=== PATIENT | female | born 1950 | race Caucasian/White ===

== ENCOUNTER 2020-02-26 09:34 | Outpatient (RCR) | payer MEDICARE, OTHER, SELFPAY | END 2020-03-23 23:59 | disposition home or self-care (01) | LOC: SPT 09:34 | PROVIDERS: PCP Nurse Practitioner Family; Referring Provider Nurse Practitioner Family; Visit Provider Nurse Practitioner Family | DX: M46.1 Sacroiliitis, not elsewhere classified (principal) | CPT/HCPCS: 97110; 97116; 97161 ==

== ENCOUNTER 2020-03-24 06:00 | Outpatient (RCR) | payer MEDICARE, OTHER, SELFPAY | END 2020-04-08 14:44 | disposition home or self-care (01) | LOC: SPT 06:00 | PROVIDERS: PCP Nurse Practitioner Family; Referring Provider Nurse Practitioner Family; Visit Provider Nurse Practitioner Family | DX: M46.1 Sacroiliitis, not elsewhere classified (principal) | CPT/HCPCS: 97110 ==

== ENCOUNTER → 2021-06-03 15:15 | Outpatient (BNVA) | payer MEDICARE, OTHER, SELFPAY | PROVIDERS: PCP Nurse Practitioner Family; Visit Provider Orthopaedic Surgery | DX: M54.9 Dorsalgia, unspecified (principal) | CPT/HCPCS: 72110 ==

== ENCOUNTER → 2021-06-23 09:55 | Outpatient (BNVA) | payer MEDICARE, OTHER, SELFPAY | PROVIDERS: PCP Nurse Practitioner Family; Referring Provider Orthopaedic Surgery; Visit Provider Anesthesiology Pain Medicine | DX: G89.29 Other chronic pain (principal); M47.816 Spondylosis without myelopathy or radiculopathy, lumbar region; M51.16 Intervertebral disc disorders with radiculopathy, lumbar region; Z79.891 Long term (current) use of opiate analgesic | CPT/HCPCS: 99204 ==

== ENCOUNTER → 2021-06-30 13:22 | Outpatient (BNVA) | payer MEDICARE, OTHER, SELFPAY | PROVIDERS: PCP Family Medicine; Visit Provider Anesthesiology Pain Medicine | DX: M51.16 Intervertebral disc disorders with radiculopathy, lumbar region (principal); Z79.891 Long term (current) use of opiate analgesic | CPT/HCPCS: 62323; J1040; J3490 ==

== ENCOUNTER → 2021-07-13 08:02 | Outpatient (BNVA) | payer MEDICARE, OTHER, SELFPAY | PROVIDERS: PCP Family Medicine; Referring Provider Orthopaedic Surgery; Visit Provider Specialist | DX: M47.816 Spondylosis without myelopathy or radiculopathy, lumbar region (principal); G62.89 Other specified polyneuropathies | CPT/HCPCS: 95886; 95909; 99202 ==

== ENCOUNTER → 2021-07-14 09:00 | Outpatient (BNVA) | payer MEDICARE, OTHER, SELFPAY | PROVIDERS: PCP Family Medicine; Visit Provider Anesthesiology Pain Medicine | DX: M47.816 Spondylosis without myelopathy or radiculopathy, lumbar region (principal); M51.16 Intervertebral disc disorders with radiculopathy, lumbar region; M79.659 Pain in unspecified thigh; G62.9 Polyneuropathy, unspecified; Z79.891 Long term (current) use of opiate analgesic | CPT/HCPCS: 99214 ==

== ENCOUNTER → 2021-08-17 14:22 | Outpatient (BNVA) | payer MEDICARE, OTHER, SELFPAY | PROVIDERS: PCP Family Medicine; Visit Provider Anesthesiology Pain Medicine | DX: M54.16 Radiculopathy, lumbar region (principal) | CPT/HCPCS: 62323; J1040; J3490 ==

== ENCOUNTER → 2021-11-16 09:24 | Outpatient (BNVA) | payer MEDICARE, OTHER, SELFPAY | PROVIDERS: PCP Family Medicine; Visit Provider Anesthesiology Pain Medicine | DX: M47.816 Spondylosis without myelopathy or radiculopathy, lumbar region (principal); M51.16 Intervertebral disc disorders with radiculopathy, lumbar region; G62.9 Polyneuropathy, unspecified; Z79.891 Long term (current) use of opiate analgesic | CPT/HCPCS: 99214 ==

== ENCOUNTER → 2022-01-17 14:06 | Outpatient (BNVA) | payer MEDICARE, OTHER, SELFPAY | PROVIDERS: PCP Family Medicine; Visit Provider Anesthesiology Pain Medicine | DX: M54.16 Radiculopathy, lumbar region (principal); Z79.891 Long term (current) use of opiate analgesic | CPT/HCPCS: 62323; J1040; J3490 ==

== ENCOUNTER → 2022-02-03 09:36 | Outpatient (BNVA) | payer MEDICARE, OTHER, SELFPAY | PROVIDERS: PCP Family Medicine; Visit Provider Anesthesiology Pain Medicine | DX: M47.816 Spondylosis without myelopathy or radiculopathy, lumbar region (principal); M51.16 Intervertebral disc disorders with radiculopathy, lumbar region; G62.9 Polyneuropathy, unspecified; Z79.891 Long term (current) use of opiate analgesic | CPT/HCPCS: 99213 ==

== ENCOUNTER → 2022-02-22 08:33 | Outpatient (BNVA) | payer MEDICARE, OTHER, SELFPAY | PROVIDERS: PCP Family Medicine; Visit Provider Orthopaedic Surgery | DX: M48.062 Spinal stenosis, lumbar region with neurogenic claudication (principal); M51.16 Intervertebral disc disorders with radiculopathy, lumbar region | CPT/HCPCS: 99214 ==

== ENCOUNTER 2022-03-18 08:30 | Day surgery (SDC) | payer MEDICARE, OTHER, SELFPAY ==
[2022-03-11 09:51] VITALS: BMI 31.1
--- NOTE | 2022-03-11 15:08 | ANES.PREANE2 ---
Pre-Anesthetic Assessment Height/Weight: Height 1.57 m Weight 77.111 kg Operation Date: 03/18/22 10:00 Proposed Procedures p Lumbar Spine Decompression minimally invasive L3/4 L4/5 77046/58623/M48.062(Not Applicable) - Marc Venegas DO Familial anesthetic complications: none Was Beta Meredith taken within 24 hours: N/A Was Clonidine taken within 24 hours: N/A Social No alcohol and No tobacco Exam alert, oriented x 3, clear to auscultation bilaterally and regular rate & rhythm Airway Submandibular: within normal limits Cervical ROM: within normal limits Mallampati: Class II Dentition: chipped Metabolic Morbid Obesity Musc/skel Lower Back Pain Neuropsych Neuropathy Anesthetic Plan ASA status: 3 Anesthesia: General Medications/Allergies Home Medications Medication Instructions Recorded Confirmed Last Taken Type tramadol 50 mg tablet 50 mg PO DAILY 06/03/21 03/11/22 Unknown History Allergies Allergy/AdvReac Type Severity Reaction Status Date / Time No Known Allergies Allergy Verified 02/22/22 09:18 [facility] Anesthesia Social History Smoking and tobacco status: never smoked Second hand smoke exposure: No Alcohol intake: never History of recent travel: No Data Anesthesia Cardiac Studies: No Data to Display
[2022-03-18] VITALS (7 sets, daily range): BP systolic 139–178; BP diastolic 68–88; PULSE 69–96; RESP 16; TEMP 36.4–36.6; O2SAT 94–100
--- NOTE | 2022-03-18 | SCC_ITS ---
Procedure done: 1. L3/4 laminectomy with partial facetectomy 2. L4/5 laminectomy with partial facetectomy 18.7 seconds of fluoroscopic guidance, for a cumulative dose of 5.83 mGy, was provided to Dr. Venegas by the radiology department. C-arm images of the lumbar spine were saved for the patient's permanent record. [facility]
--- NOTE | 2022-03-18 | XR_ITS ---
WS: [id number] Lumbar spine, C-arm fluoroscopy, 03/18/2022 Clinical Data: L3-L4 and L4-L5 decompression Comparison: None. Findings: Dr. Venegas performed lumbar decompression at L3-L4 and L4-L5. XR/XR lumbar spine 1V [id number] Impression: Lumbar decompression.
--- NOTE | 2022-03-18 08:47 | W.PM.OPSUD ---
Surgery/Procedure H&P Update DATE OF PROCEDURE: March 18, 2022 DATE H&P PERFORMED: 02/22/22 H&P UPDATE INFORMATION: I have reviewed H&P completed within last 30 days, I have examined patient prior to procedure and No changes to prior documentation PREOP DIAGNOSIS: Lumbar stenosis with neurogenic claudication PLANNED PROCEDURE: Operation Date: 03/18/22 10:00 Proposed Procedures p Lumbar Spine Decompression minimally invasive L3/4 L4/5 [id number]/M48.062 wants to stand on left(Not Applicable) - Marc Venegas DO
--- NOTE | 2022-03-18 08:52 | P.ANESUD_ITS ---
Pre-Anesthetic Update Pre-Anesthetic Assessment: Date of Surgery/Procedure: 03/18/22 Preop Miguelina gnosis: Lumbar stenosis with neurogenic claudication Proposed Procedure: Operation Date: 03/18/22 10:00 Proposed Procedures p Lumbar Spine Decompression minimally invasive L3/4 L4/5 [id number]/M48.062 wants to stand on left(Not Applicable) - Marc Venegas, DO Any changes to Pre-Anesthetic Assessment?: No Last Intake: Intake Last Liquid Date 03/17/22 Last Liquid Time 22:00 Last Solid Date 03/17/22 Last Solid Time 19:00 Vitals: Temperature 97.8 F 03/18/22 08:37 Temperature Source Temporal Artery S can 03/18/22 08:37 Pulse Rate 69 03/18/22 08:37 Pulse Rhythm 03/18/22 08:40 Pulse Strength 3+ Normal 03/18/22 08:40 Respiratory Rate 16 03/18/22 08:37 Blood Pressure 178/70 03/18/22 08:37 Blood Pressure Stella n 106 03/18/22 08:37 Pulse Oximetry 95 03/18/22 08:37 Oxygen Delivery Me thod 03/18/22 08:40 Exam: Pre-Anes Outpt Exam: alert, oriented x 3, clear to auscultation bilaterally and regular rate & rhythm Cardiac Studies: No Data to Display
[2022-03-18] MEDS: sodium chloride 0.9% 1,000 ML 30 ML IV (09:11)
[2022-03-18] MEDS: ceFAZolin 2,000 MG in sodium chloride 0.9% (plus) 50 ML 100 MG IV (09:17)
--- NOTE | 2022-03-18 10:58 | PM.OP ---
Operative Report Date of procedure: March 18, 2022 Pre-op diagnosis: Preop Diagnosis Lumbar stenosis with neurogenic claudication Post-op diagnosis: same Procedure done: 1. L3/4 laminectomy with partial facetectomy 2. L4/5 laminectomy with partial facetectomy Surgeon: Marc Venegas Estimated blood loss (mL): 5 Procedure: 1. L3/4 laminectomy with partial facetectomy 2. L4/5 laminectomy with partial facetectomy Patient is brought to the operative suite. After undergoing anesthesia they are placed in the prone position. All areas of impingement are well padded. Patient is then prepped and draped in the normal sterile fashion. A skin incision is made over the L3/4 level. This is confirmed under c-arm guidance. A series of dilators are passed and the tubular retractor is docked on the L3 lamina. A bovie is used to clear the soft tissue off the lamina and the L 3/4 facet joint. A high speed harriett is then used to perform the laminectomy and take down the medial aspect of the L 3/4 facet joint. A kerrison rongeure was then used to take down the remaining lamina and smooth the edge of the laminectomy up to the point where the ligamentum flavum attaches. Attention was then brought to the medial aspect of the facet joint. The remaining medial aspect of the superior and inferior aspect of the facet joint were taken down with the kerrison from the pedicle of L3 to L 4. The facet joint had significant hypertrophy. Attention was then brought to the Ligamentum Flavum. The ligament was taken down from the lamina of L3 to L4 and out medially to the remaining facet joint. The ligament was thick. The dura was then exposed. The dura was in good repair. The L3 nerve was then traced with a curette out the L3/4 foramen and found to be adequately decompressed. The L4 nerve was traced with a curette around the L4 pedicle. The lateral recess was opened with a kerrison helping to further decompress the L4 nerve. A skin incision is made over the L4/5 level. This is confirmed under c-arm guidance. A series of dilators are passed and the tubular retractor is docked on the L4 lamina. A bovie is used to clear the soft tissue off the lamina and the L 4/5 facet joint. A high speed harriett is then used to perform the laminectomy and take down the medial aspect of the L 4/5 facet joint. A kerrison rongeure was then used to take down the remaining lamina and smooth the edge of the laminectomy up to the point where the ligamentum flavum attaches. Attention was then brought to the medial aspect of the facet joint. The remaining medial aspect of the superior and inferior aspect of the facet joint were taken down with the kerrison from the pedicle of L4 to L 5. The facet joint had significant hypertrophy. Attention was then brought to the Ligamentum Flavum. The ligament was taken down from the lamina of L4 to L5 and out medially to the remaining facet joint. The ligament was thick. The dura was then exposed. The dura was in good repair. The L4 nerve was then traced with a curette out the L4/5 foramen and found to be adequately decompressed. The L5 nerve was traced with a curette around the L5 pedicle. The lateral recess was opened with a kerrison helping to further decompress the L[] nerve. Wound is then irrigated copiously with saline and surgiflo is used to stop any bleeding. The tubular retractor is removed and the wound is closed with vicryl and monocryl suture. Glue is then used to protect the wound. A sterile dressing is then placed. Patient was then placed in the supine position and transferred to the PACU in stable condition.
--- NOTE | 2022-03-18 11:29 | SUR.PHASEII ---
ROM AND SENSATION AND PULSE IN BOTH FEET.
[2022-03-18] MEDS: HYDROcodone-acetaminophen 5-325 mg Tablet 1 TAB PO (11:55)
--- NOTE | 2022-03-18 12:40 | ANE.PACU2 ---
Inpatient post-anesthesia follow up: Airway intact: Yes Vital signs: Temperature 97.9 F Pulse Rate 78 Respiratory Rate 16 Blood Pressure 139/88 Pulse Oximetry 95 Oxygen Delivery Me thod Room Air Oxygen Flow Rate 6 Fraction of Inspir ed Oxygen Hydration adequate: Yes Nausea and vomiting: No Pain level: 2 Mental status: Baseline
== END 2022-03-18 12:05 | disposition home or self-care (01) ==
PROVIDERS: PCP Family Medicine; Visit Provider Orthopaedic Surgery
PROC: (CPT 63005; principal; 2022-03-18 09:50)
DX: M48.062 Spinal stenosis, lumbar region with neurogenic claudication (principal)
CPT/HCPCS: 63047; 63048; 72020; 76000; J1100; J2405; J2704; J2710; J3010; J3490; J7030

== ENCOUNTER → 2022-04-05 10:41 | Outpatient (BNVA) | payer MEDICARE, OTHER, SELFPAY | PROVIDERS: PCP Family Medicine; Visit Provider Physician Assistant | DX: Z47.89 Encounter for other orthopedic aftercare (principal) | CPT/HCPCS: 99024 ==

== ENCOUNTER → 2022-05-03 11:03 | Outpatient (BNVA) | payer MEDICARE, OTHER, SELFPAY | PROVIDERS: PCP Family Medicine; Visit Provider Physician Assistant | DX: Z47.89 Encounter for other orthopedic aftercare (principal) | CPT/HCPCS: 99024 ==

== ENCOUNTER → 2024-02-20 15:00 | Outpatient (BNVA) | payer MEDICARE, OTHER, SELFPAY | PROVIDERS: PCP Family Medicine; Visit Provider Orthopaedic Surgery | DX: M51.16 Intervertebral disc disorders with radiculopathy, lumbar region (principal); M47.816 Spondylosis without myelopathy or radiculopathy, lumbar region; M48.062 Spinal stenosis, lumbar region with neurogenic claudication; M25.559 Pain in unspecified hip | CPT/HCPCS: 72110; 99214 ==

== ENCOUNTER 2024-03-27 10:35 | Outpatient (CLI) | payer MEDICARE, OTHER, SELFPAY ==
--- NOTE | 2024-03-27 11:00 | MR_ITS ---
WS: [id number] MRI LUMBAR SPINE NONCONTRAST TECHNIQUE: Sagittal T1, T2 and STIR imaging. Axial T1 and T2 imaging. CLINICAL INFORMATION: hip pain COMPARISON: MRI 01/31/2020 FINDINGS: Mild lumbar curve. No acute compression. Slight anterolisthesis L4 on L5. Slight retrolisthesis L1 on L2. No high-grade central canal stenosis. L1-L2: Slight retrolisthesis. Mild annular bulging. Mild facet arthropathy. Spinal canal and foramina are patent. L2-L3: No significant disc bulging. Mild facet arthropathy. Spinal canal and foramen are patent. L3-L4: Mild annular bulging. Moderate facet arthropathy. Mild LEFT and no significant RIGHT foraminal narrowing. L4-L5: Slight grade 1 anterolisthesis. Moderate facet arthropathy. Spinal canal and foramen are paten t. L5-S1: Slight anterolisthesis. Moderate facet arthropathy. Spinal canal and foramen are patent. Visualized pelvic bony structures: Normal. Paravertebral soft tissues: Normal. Small LEFT renal cyst. MR/MR lumbar spine wo con* [id number] IMPRESSION: 1. Mild lumbar curve. No acute compression 2. No high-grade central canal stenosis. 3. Slight retrolisthesis L1 on L2 is progressed compared to previous with mild annular bulging and slight effacement of the ventral thecal sac. 4. Mild LEFT L3-4 bony foraminal narrowing appears progressed. 5. Grade 1 anterolisthesis L4 on L5 appears minimally progressed. Spinal canal and foramina are patent at this level. 6. Moderate facet arthropathy L3-L5.
--- NOTE | 2024-03-27 11:45 | MR_ITS ---
WS: [id number] MRI of the pelvis without gadolinium enhancement. INDICATION: Hip pain TECHNIQUE: Coronal T1, STIR axial T1, T2 and sagittal T2 fat sat FINDINGS: Diffuse edema in the LEFT anterior superior acetabulum extending into the LEFT superior pub ic ramus. Small amount of surrounding soft tissue edema. Nondisplaced fracture of the adjacent pubic root at the margin of the anterior acetabulum. No edema in the underlying femoral head. Additional edema within the LEFT inferior pubic ramus with visualized nondisplaced fracture and surro unding soft tissue edema. Normal bone marrow signal in the femoral heads. No evidence of avascular ne crosis. Visualized proximal femoral shafts are normal. Otherwise normal bone marrow signal in the bon y pelvis and bony sacrum. Normal bone marrow signal in the visualized coccyx. Sigmoid diverticulosis. MR/MR pelvis wo con* [id number] IMPRESSION: 1. Diffuse edema in the anterior superior acetabulum with visualized nondispla natasha fracture of the adjacent pubic root. Edema extends into the adjacent superi or pubic ramus. 2. No evidence of edema in the LEFT femoral head. 3. Nondisplaced fracture of the LEFT inferior pubic ramus with surrounding sof t tissue edema. 4. Above-described fractures could be further evaluated with CT to assess for healing and better anatomic detail
== END 2024-03-27 10:36 | disposition home or self-care (01) ==
LOC: RAD 10:35
PROVIDERS: PCP Family Medicine; Visit Provider Orthopaedic Surgery
DX: S32.502A Unspecified fracture of left pubis, initial encounter for closed fracture (principal); M25.452 Effusion, left hip; M47.896 Other spondylosis, lumbar region; M47.898 Other spondylosis, sacral and sacrococcygeal region; M43.16 Spondylolisthesis, lumbar region; X58.XXXA Exposure to other specified factors, initial encounter
CPT/HCPCS: 72148; 72195

== ENCOUNTER → 2024-04-02 08:57 | Outpatient (BNVA) | payer MEDICARE, OTHER, SELFPAY | PROVIDERS: PCP Family Medicine; Visit Provider Orthopaedic Surgery | DX: M25.552 Pain in left hip (principal); Z09 Encounter for follow-up examination after completed treatment for conditions other than malignant neoplasm | CPT/HCPCS: 73502; 99214 ==

== ENCOUNTER → 2024-04-30 10:43 | Outpatient (BNVA) | payer MEDICARE, OTHER, SELFPAY | PROVIDERS: PCP Family Medicine; Visit Provider Orthopaedic Surgery | DX: S32.692A Other specified fracture of left ischium, initial encounter for closed fracture; X58.XXXA Exposure to other specified factors, initial encounter; M25.552 Pain in left hip | CPT/HCPCS: 73502; 99213 ==

== ENCOUNTER → 2024-05-28 10:16 | Outpatient (BNVA) | payer MEDICARE, OTHER, SELFPAY | PROVIDERS: PCP Family Medicine; Visit Provider Orthopaedic Surgery | DX: M25.559 Pain in unspecified hip (principal); X58.XXXD Exposure to other specified factors, subsequent encounter; S32.692D Other specified fracture of left ischium, subsequent encounter for fracture with routine healing | CPT/HCPCS: 73502; 99213 ==

== ENCOUNTER → 2024-08-27 10:58 | Outpatient (BNVA) | payer MEDICARE, OTHER, SELFPAY | PROVIDERS: PCP Family Medicine; Visit Provider Orthopaedic Surgery | DX: S32.692D Other specified fracture of left ischium, subsequent encounter for fracture with routine healing (principal); X58.XXXD Exposure to other specified factors, subsequent encounter | CPT/HCPCS: 73502; 99213 ==

== ENCOUNTER → 2024-10-17 08:43 | Outpatient (BNVA) | payer MEDICARE, OTHER, SELFPAY | PROVIDERS: PCP Family Medicine; Visit Provider Family Medicine | DX: I10 Essential (primary) hypertension (principal); K58.0 Irritable bowel syndrome with diarrhea | CPT/HCPCS: 80053; 80061; 84443; 85025 ==

== ENCOUNTER → 2025-03-04 14:04 | Outpatient (BNVA) | payer MEDICARE, OTHER, SELFPAY | PROVIDERS: PCP Family Medicine; Visit Provider Orthopaedic Surgery | DX: M51.16 Intervertebral disc disorders with radiculopathy, lumbar region (principal); G89.29 Other chronic pain; Z98.890 Other specified postprocedural states | CPT/HCPCS: 72110; 99213 ==

== ENCOUNTER 2025-03-17 13:15 | Outpatient (CLI) | payer MEDICARE, OTHER, SELFPAY ==
--- NOTE | 2025-03-17 13:45 | MR_ITS ---
WS: [id number] MRI LUMBAR SPINE NONCONTRAST HISTORY: back pain COMPARISON: 03/27/2024 TECHNIQUE: Sagittal and axial multisequence imaging is submitted. Increase in the thoracic kyphosis. Increase in lumbar lordosis. Mild scoliosis. L1 and L2 retrolisthesis by 2 mm. L4 anterolisthesis by 3 mm. Conus terminates normally at L1-2 disc level. L1-L2: Diffuse disc bulging with mild facet arthritis. No stenosis. L2-L3: Mild annular disc bulging with mild facet and ligamentum flavum hypertrophy. Small amount of fluid in the LEFT facet joint. Mild narrowing of the foramina. No high-grade stenosis. L3-L4: Mild annular disc bulging with moderate facet joint arthritis. LEFT laminectomy defect. Mild bilateral foraminal stenosis. L4-L5: Mild annular disc bulge with facet and ligamentum flavum hypertrophy. Very mild foraminal narrowing. L5-S1: Mild facet arthritis. No stenosis. Paravertebral soft tissues are negative. 10 mm LEFT renal cyst. MR/MR lumbar spine wo con* [id number] IMPRESSION: 1. Increase in lumbar lordosis. 2. No high-grade central or foraminal stenosis. 3. Slight retrolisthesis of L1 and L2. 4. L4 anterolisthesis by 3 mm. 5. Mild foraminal narrowing at L2-3 and L3-4. 6. LEFT hemilaminectomy defect at L3-4.
== END 2025-03-17 13:16 | disposition home or self-care (01) ==
LOC: RAD 13:15
PROVIDERS: PCP Family Medicine; Visit Provider Orthopaedic Surgery
DX: M48.061 Spinal stenosis, lumbar region without neurogenic claudication (principal); M40.56 Lordosis, unspecified, lumbar region; M47.816 Spondylosis without myelopathy or radiculopathy, lumbar region; M47.817 Spondylosis without myelopathy or radiculopathy, lumbosacral region; M51.362 Other intervertebral disc degeneration, lumbar region with discogenic back pain and lower extremity pain
CPT/HCPCS: 72148

== ENCOUNTER → 2025-03-20 10:12 | Outpatient (BNVA) | payer MEDICARE, OTHER, SELFPAY | PROVIDERS: PCP Family Medicine; Visit Provider Orthopaedic Surgery | DX: G89.29 Other chronic pain (principal); Z09 Encounter for follow-up examination after completed treatment for conditions other than malignant neoplasm; M47.896 Other spondylosis, lumbar region | CPT/HCPCS: 99214 ==

== ENCOUNTER → 2025-04-08 09:35 | Outpatient (BNVA) | payer MEDICARE, OTHER, SELFPAY | PROVIDERS: PCP Family Medicine; Referring Provider Orthopaedic Surgery; Visit Provider Anesthesiology Pain Medicine | DX: M54.50 Low back pain, unspecified (principal); G89.29 Other chronic pain; M47.816 Spondylosis without myelopathy or radiculopathy, lumbar region; M51.16 Intervertebral disc disorders with radiculopathy, lumbar region; G62.9 Polyneuropathy, unspecified | CPT/HCPCS: 99214 ==

== ENCOUNTER → 2025-04-29 14:18 | Outpatient (BNVA) | payer MEDICARE, OTHER, SELFPAY | PROVIDERS: PCP Family Medicine; Visit Provider Anesthesiology Pain Medicine | DX: M47.816 Spondylosis without myelopathy or radiculopathy, lumbar region (principal) | CPT/HCPCS: 64493; 64494; 64495; J3490; J9999 ==

== ENCOUNTER → 2025-05-12 13:44 | Outpatient (BNVA) | payer MEDICARE, OTHER, SELFPAY | PROVIDERS: PCP Family Medicine; Visit Provider Anesthesiology Pain Medicine | DX: M47.816 Spondylosis without myelopathy or radiculopathy, lumbar region (principal); M51.16 Intervertebral disc disorders with radiculopathy, lumbar region; G62.9 Polyneuropathy, unspecified; G89.29 Other chronic pain; R03.0 Elevated blood-pressure reading, without diagnosis of hypertension | CPT/HCPCS: 99214 ==

== ENCOUNTER → 2025-06-09 08:22 | Outpatient (BNVA) | payer MEDICARE, OTHER, SELFPAY | PROVIDERS: PCP Family Medicine; Visit Provider Anesthesiology Pain Medicine | DX: M47.816 Spondylosis without myelopathy or radiculopathy, lumbar region (principal); M51.16 Intervertebral disc disorders with radiculopathy, lumbar region; G62.9 Polyneuropathy, unspecified; G89.29 Other chronic pain; R03.0 Elevated blood-pressure reading, without diagnosis of hypertension | CPT/HCPCS: 99214 ==

== ENCOUNTER → 2025-06-24 12:45 | Outpatient (BNVA) | payer MEDICARE, OTHER, SELFPAY | PROVIDERS: PCP Family Medicine; Visit Provider Anesthesiology Pain Medicine | DX: M47.816 Spondylosis without myelopathy or radiculopathy, lumbar region (principal) | CPT/HCPCS: 64493; 64495; J3490; J9999 ==

== ENCOUNTER → 2025-06-26 10:07 | Outpatient (BNVA) | payer MEDICARE, OTHER, SELFPAY | PROVIDERS: PCP Family Medicine; Visit Provider Orthopaedic Surgery | DX: S32.692D Other specified fracture of left ischium, subsequent encounter for fracture with routine healing (principal); M54.50 Low back pain, unspecified; G89.29 Other chronic pain; X58.XXXD Exposure to other specified factors, subsequent encounter | CPT/HCPCS: 99213 ==

== ENCOUNTER → 2025-07-01 09:36 | Outpatient (BNVA) | payer MEDICARE, OTHER, SELFPAY | PROVIDERS: PCP Family Medicine; Visit Provider Anesthesiology Pain Medicine | DX: M47.816 Spondylosis without myelopathy or radiculopathy, lumbar region (principal); M51.16 Intervertebral disc disorders with radiculopathy, lumbar region; G62.9 Polyneuropathy, unspecified; R03.0 Elevated blood-pressure reading, without diagnosis of hypertension | CPT/HCPCS: 99214 ==

== ENCOUNTER → 2025-07-08 13:01 | Outpatient (BNVA) | payer MEDICARE, OTHER, SELFPAY | PROVIDERS: PCP Family Medicine; Visit Provider Anesthesiology Pain Medicine | DX: M47.816 Spondylosis without myelopathy or radiculopathy, lumbar region (principal) | CPT/HCPCS: 64635; 64636; J1100; J9999 ==